=== PATIENT | male | born 1995 | race African-American/Black ===

== ENCOUNTER 2022-08-21 15:06 | Emergency (ER) | payer OTHER ==
[~2022-08-21] VITALS: Ht 172.7 cm; Wt 70.0 kg
[2022-08-21 15:10] VITALS: BP 109/76
[2022-08-21] MEDS ORDERED: SODI3.5O6 LEFTEYE ×2 (16:43→16:49)
[2022-08-21] MEDS ORDERED: ATRO2DRO6 LEFTEYE (16:49)
== END 2022-08-21 17:10 | disposition home or self-care (01) ==
LOC: ER 15:06
DX: H53.8 Other visual disturbances (principal)
CPT/HCPCS: 99283